=== PATIENT | male | born 1940 | race Caucasian/White ===

== ENCOUNTER 2017-04-12 20:08 | Emergency (ER) | payer MEDICARE ==
[~2017-04-12] VITALS: Ht 182.9 cm; Wt 86.4 kg
[2017-04-12 20:10] VITALS: BP 117/66; PULSE 83; RESP 16; O2SAT 97
[2017-04-12 20:47] LABS: Mean Corpuscular Hemoglobin 32.5 pg (27.0-35.0); Mean Corpuscular Volume 92 fL (81-100); NEUTROPHILS % (AUTO) 62 % (40-74); Platelet Count 237 bil/L (150-400)
[2017-04-12 20:48] VITALS: BP 123/73; PULSE 100; RESP 19; O2SAT 96
[2017-04-12 20:48] LABS: BASOPHILS % (AUTO) 0 % (0-3); EOSINOPHILS % (AUTO) 1 % (0-5); MONOCYTES % (AUTO) 11 % (4-12)
--- NOTE | 2017-04-12 21:06 | ED.REPORT ---
HPI-Chest Pain 40 and Over Date of Service Apr 12, 2017 ED Provider: Raad Boyer MD Pt is a 76 y/o male with a history of afib and stroke on Xarelto who presents to the ED c/o tight chest pain onset 1100 [address]. Additional symptoms include nausea, dizziness, lightheadedness, vibration in the back of his head, and cough. He denies fever, vomiting, diarrhea, chills, or any other symptoms. He was seen at [facility] emergency department on 03/13/17 for similar symptoms. He saw Graphic Design Professor on Thursday and was decreased from 50 twice a day to 37.5 twice a day. Nursing Notes Stated Complaint: AFIB IRREGULARITY Chief Complaint: Dysrhythmia/Cardiac Nursing Notes Reviewed: Yes Allergies: Coded Allergies: No Known Allergies (Unverified , 04/12/17) General Time Seen by MD: 20:28 Chief Complaint Chest pain Hx Obtained From: Patient, Spouse Arrived By: Walk-in Sudden in Onset?: Yes Onset Occurred: 5 - 8 hours ago Symptom Duration: Constant Quality: Painful Severity: Current: Moderate Severity: Maximum: Moderate Recent Healthcare: Recent hospitalization Similar Sx Previous: Yes Risk Factors )( CAD Risk Stratification Risk factors reviewed )( TAD Risk Stratification Risk factors reviewed Past Medical History Past Medical History Stroke in February 2017 Afib Past Surgical History Reports: Cholecystectomy Smoking History Unknown if Ever Smoker Social History Alcohol Use: "Social" Other Social History: Good social support, From out of town Ambulatory Status Independent Review of Systems Vibration in the back of his head Constitutional: Denies: Chills, Fever Respiratory: Reports: Non-productive cough Cardiovascular: Reports: Chest pain GI: Reports: Nausea, Denies: Diarrhea, Vomiting Neurologic: Reports: Dizziness, Lightheaded Complete sys rev & neg: except as marked. Physical Exam Initial Vital Signs Vital Signs (First) Date Time Temp Pulse Resp B/P Pulse Ox O2 Delivery O2 Flow Rate FiO2 04/12/17 20:10 36.8 83 16 117/66 97 Room Air Initial VS: Reviewed Head / Eyes: Atraumatic, Normocephalic Neck: Supple, Full range of motion Extremities: Vascular intact, Neuro intact, No swelling, No tenderness Skin: Warm, Dry, No cyanosis Neurologic: Alert, Oriented, Nonfocal Psychiatric: Mood/affect normal, Behavior normal, Normal thought content General/Constitutional: Awake, Alert Respiratory / Chest: Atraumatic, Breath sounds NL, Breath sounds = bilat, No respiratory distress Cardiovascular: Heart rate NL, Pulses = bilaterally Irregular regular heartbeat Abdomen: Soft, Non-tender Interpretation & Diagnostics Lab Results Interpretation Result Diagram: 04/12/17204204/12/172042 Test 04/12/17 20:43 White Blood Count 8.4th/mm3 (3.8-10.1) Red Blood Count 4.77mil/mm3 (4.40-5.80) Hemoglobin 15.5g/dL (13.8-17.2) Hematocrit 43.8% (41.0-50.0) Mean Corpuscular Volume 92fL (81-100) Mean Corpuscular Hemoglobin 32.5pg (27.0-35.0) Mean Corpuscular Hemoglobin Concent 35.4% (32.0-37.0) Red Cell Distribution Width 11.4% (12.3-15.4) Platelet Count 237bil/L (150-400) Neutrophils (%) (Auto) 62% (40-74) Lymphocytes (%) (Auto) 26% (14-46) Monocytes (%) (Auto) 11% (4-12) Eosinophils (%) (Auto) 1% (0-5) Basophils (%) (Auto) 0% (0-3) Sodium Level 140mEq/L (134-144) Potassium Level 4.0mEq/L (3.5-5.2) Chloride Level 102mEq/L (97-108) Carbon Dioxide Level 23mmol/L (18-29) Blood Urea Nitrogen 15mg/dL (8-27) Creatinine 0.79mg/dL (0.76-1.27) Estimat Glomerular Filtration Rate 102mL/min (>59) Glucose Level 79mg/dL (60-99) Calcium Level 9.6mg/dL (8.5-10.1) Magnesium Level 2.1mg/dL (1.6-2.6) Total Bilirubin 0.6mg/dL (0.0-1.2) Aspartate Amino Transf (AST/SGOT) 30U/L (0-50) Alanine Aminotransferase (ALT/SGPT) 20U/L (0-44) Alkaline Phosphatase 66U/L (25-160) Troponin T 0.010ug/L (0.0-0.011) Total Protein 7.3g/dL (6.4-8.4) Albumin 4.3g/dL (3.4-5.0) ECG Interpretation ECG Interpretation: Atrial flutter, rate 114 Ventricular premature complex Time: 20:22 Interpreted by: ED physician Re-Eval/Medical Decision Med Decision/Clinical Course I was somewhat concerned because of this gentleman's chest pressure and worse lightheadedness with the atrial fibrillation and rapid ventricular response today. After 20 mg of diltiazem IV and his heart rate came down to the 50s occasionally dipping into the 40s. His symptoms resolved completely and I was able to ambulate him about the department with no symptoms at all. Laboratory data was entirely reassuring. He did however remain in atrial fibrillation. I offered elective cardioversion which he declined. 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 I instructed him and encouraged him to follow up immediately for symptomatic problems such as chest pain or pressure , shortness of breath, syncope or near syncope which she agreed to do. Source of Hx: Old records Time of Eval: 21:35 Re-Evaluation/Progress Note: Pt rechecked. Vital signs reviewed. Time of Eval: 21:59 Re-Evaluation/Progress Note: Pt rechecked. Road test performed and passed. Pt's blood pressure was 91/61 and heart rate was 60. Discussed plan for discharge. Patient understands and agrees with plan. F/U instructions and RTER warnings given. All questions addressed at this time. Counseled Regarding: Diagnosis, Lab results, Need for follow-up, When/why to return to ED Discharge & Departure Primary Impression: Atrial fibrillation with RVR Disposition: Home Discharge Condition All VS Reviewed: Yes Condition: Stable Patient Instructions: A-fib (Atrial Fibrillation) (ED) Additional Instructions: Thank you for entrusting us with your care today. Your emergency department evaluation today including examination, lab work and EKG are reassuring. There is no dangerous cause for your symptoms at this time. Your blood pressure was 91/61 and heart rate was 60 at the time of discharge but you felt well and were able to ambulate some distance without any significant symptoms such as chest pain or significant lightheadedness. Go back to your old dosage of metoprolol, with 50 mg in the morning and 50 mg at night. Please call your primary care physician tomorrow in order to schedule a follow- up appointment for a recheck. Please return to the emergency department for any new or worsening conditions including any difficulty breathing, chest pain, or fainting. Scribe Attestation Portions of this note were transcribed by Brigitte Smith. I, Dr. Boyer, personally performed the history, physical exam and medical decision-making; I reviewed and confirmed the accuracy of the information in the transcribed note. Raad Boyer MD Apr 12, 2017 21:06 Brigitte Smith Apr 12, 2017 21:14
[2017-04-12 21:07] LABS: TROPONIN T 0.01 ug/L (0.0-0.011)
[2017-04-12] MEDS ORDERED: Diltiazem 5 mg/mL 5 mL Inj ONE (21:15)
[2017-04-12 21:18] LABS: Magnesium 2.1 mg/dL (1.6-2.6)
[2017-04-12] MEDS ORDERED: Diltiazem 5 mg/mL 5 mL Inj IVPUSH ONE (21:20)
[2017-04-12 22:37] VITALS: BP 107/68; PULSE 67; RESP 18; O2SAT 96
== END 2017-04-12 22:39 | disposition home or self-care (01) ==
LOC: SED 20:08
DX: I48.91 Unspecified atrial fibrillation (principal); Z86.73 Personal history of transient ischemic attack (TIA), and cerebral infarction without residual deficits